=== PATIENT | female | born 1940 | race Caucasian/White ===

== ENCOUNTER 2022-01-20 09:43 | Outpatient (CLI) | payer MEDICARE, BC, SELFPAY ==
--- NOTE | 2022-01-20 10:15 | MR_ITS ---
[address] [address] Phone:?[phone] Fax:?[phone] Referring Physician Information: Torrey Gan [address] [facility] [address] Phone:?[phone] Fax:?[phone] Patient:?Jeimy Lomeli D.O.B:?1940 Sex:?Female Phone:?[phone] [facility] MRN:[id number] Exam Date:?01/20/2022 ? EXAM: MRI of the RIGHT SHOULDER, without contrast CLINICAL: Right shoulder pain. Evaluate supraspinatus and AC joint. COMPARISONS: MRI 01/23/2005. TECHNICAL: MRI sequences of the right shoulder: Axials: PD, PDFS Coronals: PD, T2FS Sagittals: PDFS, T2 SEDATION: None. CONTRAST: None. FINDINGS: Rotator cuff: Supraspinatus/Infraspinatus: There is high-grade near full-thickness to full- thickness tearing throughout the entire distal supraspinatus tendon with retraction of torn tendon fibers by approximately 10 mm as seen on coronal series 4 images 8-11. There is mild to moderate tendinosis and mild superimposed partial interstitial tearing of the distal infraspinatus tendon. No significant fatty atrophy of the muscle belly. Teres minor: No tendinosis, tear or atrophy. Subscapularis: Mild tendinosis of the distal tendon. No significant tendon tear and no significant fatty atrophy of the muscle belly. Bursae: Subacromial-subdeltoid: Mild bursal fluid. Subcoracoid: No convincing subcoracoid bursal thickening/bursitis. Coracoacromial arch: Acromion morphology: Type II. No os acromiale. Acromiohumeral space: Within normal limits. Coracohumeral space: Within normal limits. Biceps tendon, long head: Evaluation is relatively limited by motion artifact. There is mild tendinosis of the long head biceps tendon without evidence of significant tendon tear or displacement as visualized. Glenohumeral joint: Physiologic volume of joint fluid. Articular cartilage: No significant chondral loss. Capsule: No convincing evidence of capsular thickening or injury. Labrum: Scattered degenerative changes. No perilabral cyst identified. Bones: No suspicious marrow signal alteration, fracture or dislocation. Acromioclavicular joint: Mild to moderate changes of arthrosis.. No AC joint injury/widening. IMPRESSION: 1. High-grade near full-thickness to full-thickness tearing throughout the entire distal supraspinatus tendon with retraction of torn tendon fibers by approximately 10 mm, increased compared to prior examination. 2. Mild to moderate tendinosis and mild partial interstitial tearing of the distal infraspinatus tendon. Mild subscapularis tendinosis. 3. Mild tendinosis of the long head biceps tendon. 4. 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 5. No glenohumeral chondral defects or fracture. JCZ Electronically signed on 01/20/2022 1:34:00 PM by Ottoniel Pollock D.O.
== END 2022-01-20 09:44 | disposition home or self-care (01) ==
PROVIDERS: PCP Family Medicine; Visit Provider Physician Assistant
DX: M25.511 Pain in right shoulder (principal); M75.101 Unspecified rotator cuff tear or rupture of right shoulder, not specified as traumatic; M19.011 Primary osteoarthritis, right shoulder; S46.911A Strain of unspecified muscle, fascia and tendon at shoulder and upper arm level, right arm, initial encounter
CPT/HCPCS: 73221